=== PATIENT | female | born 1960 | race Caucasian/White ===

== ENCOUNTER 2019-06-20 11:20 | Day surgery (SDC) | payer MEDICAID ==
[2019-06-12 11:54] LABS: BASOPHILS # (AUTO) 0.1 X10'3 (0-0.2); BASOPHILS % (AUTO) 1.2 % (0-1); EOSINOPHILS # (AUTO) 0.1 X10'3 (0-0.9); LYMPHOCYTES # (AUTO) 2.5 X10'3 (1.1-4.8); LYMPHOCYTES % (AUTO) 37.9 % (21-51); MEAN CORPUSCULAR HEMOGLOBIN 30.5 PG (27.0-31.0); MEAN CORPUSCULAR VOLUME 87.1 FL (78-98); MEAN PLATELET VOLUME 7.2 FL (7.4-10.4); MONOCYTES # (AUTO) 0.5 X10'3 (0-0.9); MONOCYTES % (AUTO) 7.2 % (2-12); NEUTROPHILS # (AUTO) 3.4 X10'3 (1.8-7.7); NEUTROPHILS % (AUTO) 51.7 % (42-75); PRE OP HEMATOCRIT 41.4 % (35.0-45.0); PRE OP HEMOGLOBIN 14.5 g/dL (12.0-16.0); PRE OP PLATELET COUNT 277 X10'3 (140-440); RED BLOOD COUNT 4.75 X10'6 (4.20-5.60); RED CELL DISTRIBUTION WIDTH 12.8 % (11.5-14.5)
[2019-06-12 12:21] LABS: ALBUMIN 4.2 G/DL (3.4-5.0); ALBUMIN/GLOBULIN RATIO 0.9 (1.1-1.5); ALKALINE PHOSPHATASE 106 IU/L (46-116); BLOOD UREA NITROGEN 11 MG/DL (7-18); CALCIUM 9.4 MG/DL (8.5-10.1); CHLORIDE 105 MMOL/L (99-107); CREATININE 0.61 MG/DL (0.40-0.90); PRE OP ALT 26 U/L (30-65); PRE OP ANION GAP 11 (8-16); PRE OP AST 31 U/L (10-37); PRE OP BILIRUB, TOTAL 0.3 MG/DL (0.0-1.0); PRE OP GLUCOSE 83 MG/DL (70-104); PRE OP POTASSIUM 4.2 MMOL/L (3.4-5.1); PRE OP SODIUM 142 MMOL/L (135-145); TOTAL CARBON DIOXIDE 26.5 MMOL/L (24-32); TOTAL PROTEIN 8.8 G/DL (6.4-8.2); eGFR > 90 ML/MIN
[2019-06-20] VITALS (10 sets, daily range): BP systolic 122–150; BP diastolic 52–91
[~2019-06-20] VITALS: Ht 165.1 cm; Wt 96.2 kg
[~2019-06-20 11:20] MED LIST: BECL8.7A3 IH; BUPIVAcaine/PF 2.5 mg/ml (0.25%) 30ml vial ONE; CYCL-394 PO; DICY20TA56 PO; GABA-338 PO; IBUP-1984 PO; LORA1TAB PO; METF500T20 PO; NORCO10T PO; PROM25TA14 PO; cefazolin/dext.iso 2gm/50ml 50 ML IV ONE; famotidine 20mg tablet PO ONE; ringers solution, lacted 1,000 ML IV SCH; triamcinolone acetonide 40mg/ml inj ONE; vancomycin inj 1,500 MG in normal saline 300ml IV soln IV ONE
[2019-06-20] MEDS ORDERED: ringers solution, lacted 1,000 ML IV SCH (12:02)
[2019-06-20] MEDS ORDERED: labetalol 20mg/4ml (5mg/ml) syringe IV PRN (12:05)
[2019-06-20] MEDS ORDERED: hydrALAZINE 20mg/ml inj. IV PRN (12:05)
[2019-06-20] MEDS ORDERED: ondansetron/PF 4mg/2ml inj IV PRN (12:05)
[2019-06-20] MEDS ORDERED: morphine 4 MG/ML inj SYRINge IV PRN ×2 (12:05)
[2019-06-20] MEDS ORDERED: fentaNYL/PF 50MCG/1 ML 2ML syringe IV PRN ×2 (12:05)
[2019-06-20] MEDS ORDERED: DILT-35 PO (12:41)
[2019-06-20] MEDS ORDERED: BUPIVACAINE liposomal/PF 13.3 MG/ML vial IM ONE (12:50)
[2019-06-20] MEDS ORDERED: BUPIVAcaine 0.5% inj/PF 30 ML ONE (12:50)
[2019-06-20] MEDS ORDERED: sevoflurane 250ml liquid IH ONE (12:57)
[2019-06-20] MEDS ORDERED: dexamethasone sod phosphate 10mg/ml inj ONE (12:57)
[2019-06-20] MEDS ORDERED: midazolam 2 mg/2 ml injection ONE (13:04)
[2019-06-20] MEDS ORDERED: fentaNYL/PF 50MCG/1 ML 2ML syringe ONE (13:04)
[2019-06-20] MEDS ORDERED: ondansetron/PF 4mg/2ml inj ONE (13:22)
[2019-06-20] MEDS ORDERED: LIDOcaine 2% (20mg/ml) 5ml vial ONE (14:10)
[2019-06-20] MEDS ORDERED: propofol inj 20 ML IV ONE (14:11)
--- NOTE | 2019-06-20 14:23 | NUR ---
Received from OR via [facility], accompanied by Anesthesiologist DR VALDERRAMA and report given by Anesthesiologist. PT DROWSY, DENIES PAIN, RIGHT SHOULDER W/ISLAND DRSG CDI, RIGHT ARM IN SLING, FINGERS PWD, RADIAL PULSE 2+. Addendum: 06/20/19 at 1511 by Marie Phillips RN Amended: Links added.
--- NOTE | 2019-06-20 15:53 | NUR ---
D/C INSTRUCTIONS INCLUDING REGIONAL BLOCK INFORMATION GIVEN AND GONE OVER W/PT WHO VERBALIZES UNDERSTANDING, PT D/CD TO HOME VIA W/C TO PRIVATE VEHICLE W/O INCIDENT. Addendum: 06/20/19 at 1616 by Marie Phillips RN Amended: Links added.
== END 2019-06-20 15:53 | disposition home or self-care (01) ==
LOC: PAS 11:20
PROVIDERS: ATTEND Orthopaedic Surgery
DX: M75.121 Complete rotator cuff tear or rupture of right shoulder, not specified as traumatic (principal); M19.011 Primary osteoarthritis, right shoulder; M81.0 Age-related osteoporosis without current pathological fracture; F41.9 Anxiety disorder, unspecified; G89.4 Chronic pain syndrome; I10 Essential (primary) hypertension; J45.909 Unspecified asthma, uncomplicated; E66.01 Morbid (severe) obesity due to excess calories; Z68.37 Body mass index [BMI] 37.0-37.9, adult; G89.18 Other acute postprocedural pain; Z98.890 Other specified postprocedural states; Z79.899 Other long term (current) drug therapy
CPT/HCPCS: 29824; 29826; 29827; 36415; 64415; 80053; 82948; 85025; C9290; J1100; J2001; J2250; J2405; J2704; J3010; J3301; J3370; J3490; A4215; A4565; A4618; A6250; A6449; A7000; J7120

== ENCOUNTER 2022-05-23 09:34 | Emergency (ER) | payer MEDICAID ==
[~2022-05-23] VITALS: Ht 165.1 cm; Wt 95.0 kg
[~2022-05-23 09:34] MED LIST changes: -BUPIVAcaine/PF 2.5 mg/ml (0.25%) 30ml vial ONE; +CALC600T35; +CHOL500050; -CYCL-394 PO; -DICY20TA56 PO; +DILT-35 PO; +GABA300C PO; -IBUP-1984 PO; +IBUP-1985 PO; +LORA-269 PO; -LORA1TAB PO; -METF500T20 PO; -NORCO10T PO; -PROM25TA14 PO; +ROSU40TA22; -cefazolin/dext.iso 2gm/50ml 50 ML IV ONE; -famotidine 20mg tablet PO ONE; -ringers solution, lacted 1,000 ML IV SCH; -triamcinolone acetonide 40mg/ml inj ONE; -vancomycin inj 1,500 MG in normal saline 300ml IV soln IV ONE
[2022-05-23 09:45] VITALS: BP 159/83
[2022-05-23] MEDS ORDERED: proparacaine 0.5% ophthalmic drops 15ml EACHEYE ONE (10:30)
[2022-05-23] MEDS ORDERED: AMOX-117 PO (10:52)
[2022-05-23] MEDS ORDERED: amox tr/potassium clavulanate 875/125mg TAB PO ONE (10:55)
== END 2022-05-23 11:27 | disposition home or self-care (01) ==
LOC: ER 09:34
DX: L03.213 Periorbital cellulitis (principal)
CPT/HCPCS: 99283

== ENCOUNTER 2023-12-25 10:56 | Outpatient (CLI) | payer MEDICAID | END 2023-12-25 23:59 | disposition home or self-care (01) | LOC: RAD 10:56 | PROVIDERS: ATTEND Family Medicine | DX: M25.462 Effusion, left knee (principal); M25.562 Pain in left knee; Z96.652 Presence of left artificial knee joint | CPT/HCPCS: 73700 ==